=== PATIENT | female | born 1965 | race Hispanic/Latino ===

== ENCOUNTER → 2024-02-22 | Outpatient (CLI) | payer OTHER ==
[2024-02-22 14:44] LABS: T4 (THYROXINE) 8.9 ug/dL (4.7-13.3)
== END | disposition home or self-care (01) ==
LOC: RAH 13:13
PROVIDERS: ATTEND Family Medicine
DX: Z12.31 Encounter for screening mammogram for malignant neoplasm of breast (principal); E04.1 Nontoxic single thyroid nodule; R92.0 Mammographic microcalcification found on diagnostic imaging of breast; R92.333 Mammographic heterogeneous density, bilateral breasts; J06.9 Acute upper respiratory infection, unspecified; R05.1 Acute cough; R09.81 Nasal congestion
CPT/HCPCS: 36415; 76536; 77063; 77067; 84436; 84439; 84480; 86376; 86800

== ENCOUNTER → 2024-03-14 | Outpatient (CLI) | payer OTHER | END | disposition home or self-care (01) | LOC: RAH 10:46 | PROVIDERS: ATTEND Family Medicine | DX: N63.13 Unspecified lump in the right breast, lower outer quadrant (principal); R92.8 Other abnormal and inconclusive findings on diagnostic imaging of breast | CPT/HCPCS: 76641 ==

== ENCOUNTER → 2024-08-26 | Outpatient (CLI) | payer OTHER ==
--- NOTE | 2024-08-27 10:44 | HMCIMG ---
DIAGNOSTIC MAMMOGRAM HISTORY: MAMMOGRAPHIC MICROCALCIFICATION 6MTH F/U COMPARISON: 02/22/2024 TECHNIQUE: Left breast digital diagnostic mammogram was performed. Spot magnification also were obtained. FINDINGS: Parenchymal density: The breasts are heterogeneously dense, which may obscure small masses. There are focal calcifications in the upper outer quadrant of the left breast. These are predominantly punctate but arranged in a linear configuration. There is a history of interval stereotactic biopsy. There are no visible MicroMark clips. There appears to be a focal decrease in the calcifications in the midportion. Biopsy report was received stating presence of microcalcifications with a benign result. There are no new focal calcifications. There remainder the exam is unremarkable. There is no evidence of nipple retraction or skin thickening. IMPRESSION: 1. Marker constipations upper outer quadrant of the left breast appear unchanged with the exception of the central portion of the line of calcium which appears diminished somewhat, consistent with the history of interval biopsy 2. No new calcifications, no new findings. The patient was entered into a reminder system with a target due date for their next mammogram. BI-RADS CATEGORY 2: BENIGN FINDINGS Recommend monthly self breast exam as well as annual clinical examination. A negative x-ray should not delay biopsy if a dominant or clinically suspicious mass is present, since 8-10% of cancers are not identified by mammography. Dense breasts particularly, may obscure an underlying neoplasm. Some of these may be detected clinically and therefore, clinical examination is an essential part of breast evaluation.
== END | disposition home or self-care (01) ==
LOC: RAH 15:03
PROVIDERS: ATTEND Family Medicine
DX: R92.332 Mammographic heterogeneous density, left breast (principal); N63.0 Unspecified lump in unspecified breast; R92.0 Mammographic microcalcification found on diagnostic imaging of breast; J98.4 Other disorders of lung
CPT/HCPCS: 77065

== ENCOUNTER → 2024-09-23 | Outpatient (CLI) | payer OTHER ==
[2024-09-23 14:07] LABS: HEMOGLOBIN A1C 6.9 % (4.0-6.0)
[2024-09-23 14:08] LABS: ALBUMIN 3.9 g/dL (3.5-5.0); CREATININE 0.8 mg/dL (0.5-1.0); POTASSIUM 4.4 mmol/L (3.5-5.1); TOTAL PROTEIN, SERUM 7.4 g/dL (6.0-8.3)
[2024-09-23 14:22] LABS: APPEARANCE,URINE CLEAR (CLEAR); BILIRUBIN,URINE NEGATIVE (NEGATIVE); COLOR,URINE LIGHT-YELLOW (YELLOW); GLUCOSE, URINE (UA) NEGATIVE (NEGATIVE); KETONES,URINE NEGATIVE (NEGATIVE); LEUKOCYTE ESTERASE ,URINE NEGATIVE Leu/uL (NEGATIVE); MUCUS,URINE RARE LPF (None Seen); NITRATE,URINE NEGATIVE (NEGATIVE); OCCULT BLOOD,URINE NEGATIVE (NEGATIVE); PROTEIN,URINE NEGATIVE (NEGATIVE); SQUAMOUS EPITHELIAL CELL,UR FEW /HPF (0-2); UROBILINOGEN,URINE 0.2 mg/dL (0.2-1.0)
== END | disposition home or self-care (01) ==
LOC: LAB 13:27
PROVIDERS: ATTEND Obstetrics & Gynecology
DX: I10 Essential (primary) hypertension (principal); E78.2 Mixed hyperlipidemia; E11.69 Type 2 diabetes mellitus with other specified complication
CPT/HCPCS: 36415; 80053; 80061; 81001; 82043; 82570; 83036